=== PATIENT | female | born 1955 | race Caucasian/White ===

== ENCOUNTER 2021-01-11 17:46 | Emergency (ER) | payer MEDICAID ==
[~2021-01-11] VITALS: Ht 157.5 cm; Wt 73.0 kg
[2021-01-11 17:58] VITALS: BP 132/82
== END 2021-01-11 19:05 | disposition home or self-care (01) ==
LOC: ER 18:30
DX: S20.212A Contusion of left front wall of thorax, initial encounter (principal); I10 Essential (primary) hypertension; K21.9 Gastro-esophageal reflux disease without esophagitis; X58.XXXA Exposure to other specified factors, initial encounter; Y93.89 Activity, other specified; Y92.89 Other specified places as the place of occurrence of the external cause; Y99.8 Other external cause status
CPT/HCPCS: 71045-TC

== ENCOUNTER 2021-08-04 16:08 | Emergency (ER) | payer MEDICARE, OTHER ==
[~2021-08-04] VITALS: Ht 157.5 cm; Wt 72.6 kg
--- NOTE | 2021-08-04 16:23 | NUR ---
BIBS FOR C/O LOW ABDOMINAL PAIN AND MINIMAL VAGINAL DISCHARGE, CERVICAL BIOPSY WAS ATTEMPTED 07/31/2021. RATES PAIN 5/10. ABDOMEN SOFT AND NON-DISTENDED. RESPIRATION REGULAR AND UNLABORED. WILL CONTINUE TO MONITOR THE PATIENT.
--- NOTE | 2021-08-04 16:53 | NUR ---
PERFORMED A PELVIC EXAM. SPECIMEN WAS COLLECTED AND SENT TO LAB.
[2021-08-04 17:07] LABS: BILIRUBIN,URINE NEGATIVE (NEGATIVE); COLOR,URINE YELLOW (YELLOW); LEUKOCYTE ESTERASE ,URINE NEGATIVE (NEGATIVE); NITRITE, URINE NEGATIVE (NEGATIVE); PROTEIN,URINE NEGATIVE (NEGATIVE); UGLUCOSE NEGATIVE (NEGATIVE); UROBILINOGEN,URINE 0.2 EU/dL (0.2)
[2021-08-04] MEDS ORDERED: IBUPROFEN SUSP 100 MG/5 ML UDC ONE (17:30)
[2021-08-04] MEDS ORDERED: ACETAMINOPHEN 160 MG/5 ML ONE (17:31)
--- NOTE | 2021-08-04 17:32 | NUR ---
PAGED US TECH. WAITING FOR RESPONSE.
--- NOTE | 2021-08-04 18:06 | NUR ---
US TECH AT THE BEDSIDE
[2021-08-04] MEDS ORDERED: IBUP-1955 PO (19:25)
[2021-08-04 19:33] VITALS: BP 144/81
--- NOTE | 2021-08-04 19:33 | NUR ---
pt ok to discharge per dr Avila. Patient discharged to home in stable condition. Written and verbal after care instructions given. Patient verbalizes understanding of instruction.Patient is awake and alert to self, day, and place. pt ambulatory with a steady gait
== END 2021-08-04 19:34 | disposition home or self-care (01) ==
LOC: ER 16:08
DX: R10.2 Pelvic and perineal pain (principal); I10 Essential (primary) hypertension; K21.9 Gastro-esophageal reflux disease without esophagitis
CPT/HCPCS: 76856; 81003; 87210; 87491 ×2; 87591; 99284; A6403

== ENCOUNTER 2022-06-20 21:57 | Emergency (ER) | payer MEDICARE, OTHER ==
[~2022-06-20] VITALS: Ht 160 cm; Wt 72.6 kg
[~2022-06-20 21:57] MED LIST: IBUP-1955 PO
[2022-06-20] MEDS ORDERED: ASPIRIN 325 MG TABLET ONE (22:51)
--- NOTE | 2022-06-20 22:56 | NUR ---
PATIENT BIBHUSBAND C/O MIDSTERNAL CP NON RADIAITING DULL 6/10 X 1300. PATIENT IS A/O X 4 RR EVEN AND UNLABORED NO SOB NOTED. PATIENT TAKEN TO ER BED 9. PATIENT CONNECTED TO [employer] TECHNICIAN AND POX.
--- NOTE | 2022-06-20 22:59 | NUR ---
BLOOD COLLECTED AND SENT TO LAB
[2022-06-20] MEDS ORDERED: ASPIRIN 325 MG TABLET PO ONE (23:00)
[2022-06-20] MEDS ORDERED: KETOROLAC TROMETHAMINE INJ 30 MG/ML VIAL IV ONE (23:30)
[2022-06-20 23:31] LABS: BASOPHILS % (AUTO) 0.5 % (0.0-2.0); EOSINOPHILS % (AUTO) 2.2 % (0.0-6.0); HEMATOCRIT 40 % (33-45); HEMOGLOBIN 13.3 g/dL (11.5-14.8); LYMPHOCYTES # (AUTO) 2.4 K/uL (0.8-4.8); LYMPHOCYTES % (AUTO) 24.8 % (20.0-44.0); MEAN CORPUSCULAR HGB CONC 33 g/dl (31.0-36.0); MEAN CORPUSCULAR VOLUME 84 fL (82-100); MONOCYTES # (AUTO) 0.8 K/uL (0.1-1.30); MONOCYTES % (AUTO) 8.7 % (2.0-12.0); NEUTROPHILS # (AUTO) 6.1 K/uL (1.8-8.9); NEUTROPHILS % (AUTO) 63.8 % (43.0-81.0); PLATELET COUNT (AUTO) 340 K/uL (150-450); RED BLOOD CELL COUNT(AUTO) 4.73 MIL/uL (4.0-5.2); WHITE BLOOD COUNT (AUTO) 9.6 K/uL (4.3-11.0)
[2022-06-20 23:41] LABS: CALCIUM, SERUM 9.3 mg/dL (8.5-10.1); CARBON DIOXIDE 28 mmol/L (21-32); CHLORIDE 102 mmol/L (98-107); CREATININE 0.8 mg/dL (0.6-1.3); GLUCOSE 126 mg/dL (74-106); SODIUM SERUM 136 mmol/L (136-145); UREA NITROGEN, BLOOD 13 mg/dL (7-18)
[2022-06-20 23:56] LABS: ALANINE AMINOTRANSFERASE 23 U/L (12-78); ALBUMIN 3.5 g/dL (3.4-5.0); ALKALINE PHOSPHATASE 113 U/L (46-116); ASPARTATE AMINOTRANSFERASE 9 U/L (15-37); BILIRUBIN,DIRECT 0.1 mg/dL (0.0-0.2); BILIRUBIN,TOTAL 0.2 mg/dL (0.2-1.0); TOTAL PROTEIN, SERUM 7.9 g/dL (6.4-8.2)
[2022-06-21] MEDS ORDERED: KETOROLAC TROMETHAMINE INJ 30 MG/ML VIAL ONE (00:19)
--- NOTE | 2022-06-21 02:57 | NUR ---
Patient discharged to home in stable condition. Written and verbal after care instructions given. Patient verbalizes understanding of instruction.
[2022-06-21 02:58] VITALS: BP 133/64
== END 2022-06-21 03:16 | disposition home or self-care (01) ==
LOC: ER 22:07
DX: R07.89 Other chest pain (principal); I10 Essential (primary) hypertension; Z79.1 Long term (current) use of non-steroidal anti-inflammatories (NSAID)
CPT/HCPCS: 99285; 71045; 93005; 85025; 80048; 80076; 36415 ×2; 84484 ×2; 85730; 83880; 96374; J1885